=== PATIENT | male | born 1995 | race African-American/Black ===

== ENCOUNTER 2019-08-20 12:54 | Emergency (ER) | payer SELFPAY ==
[~2019-08-20] VITALS: Ht 182.9 cm; Wt 102.3 kg
[~2019-08-20 12:54] MED LIST: ALBU8HFA4 IH
[2019-08-20] MEDS ORDERED: ALBU8HFA IH (14:19)
[2019-08-20] MEDS ORDERED: POVIDONE-IODINE 10% 15 ML SOLUTION UD TP ONE (14:30)
[2019-08-20] MEDS ORDERED: BACITRACIN 0.9 GM PACKET OINTMENT TP ONE (14:30)
[2019-08-20] MEDS ORDERED: PERTUSS(ACELL),DIPH,TET VAC/PF 0.5 ML VIAL IM ONE (14:30)
[2019-08-20 14:37] VITALS: BP 134/70
== END 2019-08-20 15:20 | disposition home or self-care (01) ==
LOC: EMS 12:55
DX: S61.101A Unspecified open wound of right thumb with damage to nail, initial encounter (principal); J45.909 Unspecified asthma, uncomplicated; Z79.899 Other long term (current) drug therapy; W26.8XXA Contact with other sharp object(s), not elsewhere classified, initial encounter; Y93.89 Activity, other specified; Y92.89 Other specified places as the place of occurrence of the external cause; Y99.8 Other external cause status
CPT/HCPCS: 90471; 90715